=== PATIENT | female | born 1965 | race Two or more races ===

== ENCOUNTER 2021-01-12 08:00 | Day surgery (SDC) | payer OTHER | END 2021-01-12 11:50 | disposition home or self-care (01) | LOC: AMB-ENDOS 08:00 | PROVIDERS: ATTEND Surgery | DX: D12.5 Benign neoplasm of sigmoid colon (principal); K64.8 Other hemorrhoids; Z20.822 Contact with and (suspected) exposure to COVID-19; Z12.11 Encounter for screening for malignant neoplasm of colon ==

== ENCOUNTER 2021-03-07 08:02 | Outpatient (CLI) | payer OTHER | END 2021-03-07 08:06 | disposition home or self-care (01) | LOC: SONOGRAMA 08:02 | PROVIDERS: ATTEND Pathology Anatomic Pathology & Clinical Pathology | DX: E04.1 Nontoxic single thyroid nodule (principal) ==

== ENCOUNTER 2024-03-07 05:50 | Day surgery (SDC) | payer OTHER ==
[2024-03-07] MEDS ORDERED: MIDAZOLAM HCL 2 MG/2 ML VIAL IV ONE (08:00)
[2024-03-07] MEDS ORDERED: DIPHENHYDRAMINE HCL 50 MG/ML VIAL 1ML IV ONE (08:00)
[2024-03-07] MEDS ORDERED: fentaNYL CITRATE 50 MCG/ML AMPUL IV ONE (08:00)
== END 2024-03-07 10:30 | disposition home or self-care (01) ==
LOC: AMB-ENDOS 05:50
PROVIDERS: ATTEND Surgery
DX: K62.1 Rectal polyp (principal); K59.00 Constipation, unspecified; Z86.010 Personal history of colon polyps